=== PATIENT | female | born 1990 | race Caucasian/White ===

== ENCOUNTER 2022-05-11 10:48 | Emergency (ER) | payer OTHER, SELFPAY ==
[2022-05-11 10:49] VITALS: BP 128/85; PULSE 78; RESP 16; TEMP 36.4; O2SAT 100; BMI 31.6
--- NOTE | 2022-05-11 11:04 | EDS_ITS ---
HPI HPI - Female History of Present Illness Chief Complaint: Vag Bleeding Narrative Narrative: 32-year-old female here with heavy vaginal bleeding and dizziness. The patient states this has been intermittent for the last several weeks. States heavy bleeding she is gone through approximately 10 pads in the last 48 hours. Notes history of 2 miscarriages. She is a G4, P6. She notes some dizziness and lightheadedness upon exertion. Denies any chest pain or yessi shortness of breath at this time. PFSH PFSH Medical History no medical history Home Medications NK 05/11/22 [History Last Taken Unknown] Allergy/AdvReac Type Severity Reaction Status Date / Time No Known Allergies Allergy Verified 05/11/22 11:46 Surgical History no surgical history Social History Smoking Status: Never smoker ROS ROS ED ROS Narrative Constitutional: Denies fever HEENT: Denies sore throat Neck: Denies neck pain Cardiovascular: Denies chest pain, syncope Respiratory: Denies shortness of breath GI: Denies nausea vomiting or abdominal pain : Denies changes in urinary habits, endorses vaginal bleeding Musculoskeletal: Denies muscle or joint pain Neurologic: Denies numbness weakness or loss of sensation, endorses dizziness Skin denies rash EXAM Physical Exam Narrative Exam Narrative: Nursing triage notes reviewed, Vital signs reviewed Constitutional: please see mdm HENT: MMM Eyes: Pupils equal round and reactive to light, Extraocular muscles intact Neck: No stridor, no JVD, full neck ROM Lungs: Clear to auscultation, No wheezing or rales. No increased work of breathing, no conversational dyspnea, no accessory muscle use, no nasal flaring. No respiratory distress noted Heart: Regular rate and rhythm, No murmurs, No rubs and No gallops, 2+ distal pulses (radial, femoral, posterior tibial) in all extremities Abdomen: Soft, there is no tenderness, rigidity, rebound or guarding, no obvious peritoneal signs, no palpable pulsatile abdominal masses, no auscultated abdo eloise bruit : No CVAT, pelvic exam deferred by patient Extremities: No edema Neuro: Alert and oriented x3, neuro exam at baseline, cranial nerves II through XII are intact. No pain with extraocular muscle movement. There is negative test of skew. Normal speech. 5 of 5 strength in upper and lower extremities in flexion extension. Intact sensation to light touch in upper and lower extremity dermatomes. No truncal or extremity ataxia. No dysdiadochokinesia. Normal gait. 2+ reflexes. No meningeal signs. Negative Babinski. NIH of 0 Skin: No rash or lesions noted Const Vital Signs: 05/11/22 10:49 Temperature 97.6 F L Temperature Source Temporal Pulse Rate 78 Respiratory Rate 16 Blood Pressure 128/85 H Blood Pressure Mean 99 Pulse Ox 100 Oxygen Delivery Method Room Air MDM MDM MDM Narrative Medical decision making narrative: Chief Complaint: Vaginal bleeding External records reviewed: No recent ED visits or hospitalizations I considered: Abnormal uterine bleeding, , miscarriage, ectopic , anemia The patient was hemodynamically stable, afebrile, nontoxic-appearing. He had no focal neurologic deficits on exam. Obtained labs which showed no significant anemia, troponin EKG showed no evidence of myocardial ischemia. There is no significant acute kidney injury. Patient is Rh+. Labs are otherwise unremarkable. Patient was not ruling out ectopic or miscarriage. Patient is likely some from dysfunctional uterine bleeding or heavy uterine bleeding. Recommended close EXECUTIVE MARKETING ASSISTANT follow-up. Discussed tricked return precautions. Factors affecting care: None Social determinants of health: None History obtained from others: Shared decision making: I will have a discussion with the patient and or visitors regarding risk/benefits of further testing or admission. They will be made aware of of the risk/benefits inherent in this decision they will be given the opportunity to voice understanding. Consults: none Lab Data Attestation: I reviewed the patient's lab results. Lab results narrative: CBC without leukocytosis, severe anemia, no thrombocytopenia. BMP without evidence of significant electrolyte abnormalities, no anion gap, no acute kidney injury. Serum hCG negative Troponin negative Labs: Laboratory Results - last 24 hr 05/11/22 05/11/22 05/11/22 11:00 11:00 11:00 WBC 7.7 RBC 4.95 Hgb 15.0 Hct 42.6 MCV 86.1 MCH 30.3 MCHC 35.2 RDW Std Deviation 36.5 RDW Coeff of Chanda 11.6 Plt Count 341 MPV 10.0 Immature Gran % (Auto) 0.100 Neut % (Auto) 54.1 Lymph % (Auto) 34.1 Callahan % (Auto) 9.5 Eos % (Auto) 1.8 Baso % (Auto) 0.4 Absolute Neuts (auto) 4.2 Absolute Lymphs (auto) 2.62 Nucleated RBC % 0 Sodium 141 Potassium 3.6 Chloride 108 H Carbon Dioxide 28.0 Anion Gap 5 BUN 8 Creatinine 0.50 L Estim Creat Clear Calc 146.70 Est GFR (MDRD) Af Amer 183 Est GFR (MDRD) Non-Af 151 BUN/Creatinine Ratio 15.9 Glucose 108 H Calcium 9.3 Troponin I High Sens < 3 L HCG, Quant < 1 Blood Type Antibody Screen 05/11/22 11:00 WBC RBC Hgb Hct MCV MCH MCHC RDW Std Deviation RDW Coeff of Chanda Plt Count MPV Immature Gran % (Auto) Neut % (Auto) Lymph % (Auto) Callahan % (Auto) Eos % (Auto) Baso % (Auto) Absolute Neuts (auto) Absolute Lymphs (auto) Nucleated RBC % Sodium Potassium Chloride Carbon Dioxide Anion Gap BUN Creatinine Estim Creat Clear Calc Est GFR (MDRD) Af Amer Est GFR (MDRD) Non-Af BUN/Creatinine Ratio Glucose Calcium Troponin I High Sens HCG, Quant Blood Type A POSITIVE Antibody Screen NEGATIVE Radiography Diagnostic Testing: Clinical Impression(s) from Imaging Studies Chest X-Ray 05/11/22 11:40 IMPRESSION: Normal x-ray examination of the chest. Electronically Signed: Aric Thomas MD at 11:55 EST , I have personally reviewed the patient's chest x-ray. Chest x-ray is unremarkable for pulmonary edema, pneumothorax, pneumonia or focal cardiopulmonary abnormality. EKG Initial EKG: Comments: EKG with normal sinus rhythm, normal axis, no intervals, no obvious Discharge Plan Triage Chief Complaint: Vag Bleeding ED Provider: Hector Navarro Dx/Rx/DC Orders Clinical Impression: Abnormal vaginal bleeding Instructions: ED Dysfunctional Uterine Bleeding Prescriptions: No Action NK Primary Care Provider: Care Physician,No Primary Referrals: Darby Hernandez MD [Med Staff - Courtesy Staff] - NOT,DEFINED [Non-Staff] - Activity Restrictions/Additional Instructions: Please return if bleeding continues to be heavy, if you lose consciousness, develop worsening chest pain, shortness of breath, fatigue or weakness. Please follow with your EXECUTIVE MARKETING ASSISTANT the next billable appointment. Have given your EXECUTIVE MARKETING ASSISTANT as well he did not have one presently. Disposition Disposition: Home, Self Care Discharge Date/Time: 05/11/22 13:03
--- NOTE | 2022-05-11 11:25 | EKG12_ITS ---
Test Reason : DIZZY Blood Pressure : / mmHG Vent. Rate : 068 BPM Atrial Rate : 068 BPM P-R Int : 146 ms QRS Dur : 076 ms QT Int : 372 ms P-R-T Axes : 015 039 006 degrees QTc Int : 395 ms Normal sinus rhythm Normal ECG Confirmed by MARIANO JETER MD ([id number]), editor & co founder ARIANNA JONES ([id number]) on 05/13/2022 2:10:32 PM Referred By: Confirmed By:MARIANO JETER MD
[2022-05-11 11:39] LABS: Absolute Lymphocyte Count 2.62 X10^3/uL (0.83-4.51); Absolute Neutrophil Count 4.2 X10^3/uL (2.0-7.7); Basophil# 0.03 X10^3/uL; Basophil% 0.4 % (0-1); Eosinophil# 0.14 X10^3/uL; Eosinophils% 1.8 % (0-5); Hematocrit 42.6 % (37-47); Lymphocyte # 2.62 X10^3/ul (0.83-4.51); Lymphocyte % 34.1 % (19-41); Mean Corp Hgb Conc 35.2 g/dL (32-36); Mean Corpuscular Hgb 30.3 pg (27.0-32.0); Mean Corpuscular Volume 86.1 fL (81-99); Monocyte# 0.73 X10^3/uL; Monocyte% 9.5 % (0-10); NRBC Flagged by Analyzer 0 % (0-5); Neutrophil # 4.16 X10^3/uL (2.7-7.7); Neutrophil % 54.1 % (47-70); Platelet Count 341 K/mm3 (150-450); RBC Distribution Width CV 11.6 % (11.6-14.6); RBC Distribution Width SD 36.5 fl (35.1-43.9); Red Blood Count 4.95 M/mm3 (4.2-5.4); White Blood Count 7.7 K/mm3 (4.4-11.0)
--- NOTE | 2022-05-11 11:40 | RAD_ITS ---
STUDY: X-RAY CHEST REASON FOR EXAM: Female, 32 years old. Chest pain TECHNIQUE: PA and lateral views of the chest. COMPARISON: None. FINDINGS: The lungs are clear and expanded. There is no demonstrated pleural abnormality. Normal size heart. Normal mediastinum and xuan. Normal visualized pulmonary arteries. Normal visualized aortic arch and descending thoracic aorta. Normal visualized thoracic spine. Normal visualized ribs, clavicles, and shoulders. There is no demonstrated abnormality of the visualized soft tissue structures of the upper abdomen. RAD/Chest PA and Lateral IMPRESSION: Normal x-ray examination of the chest. Electronically Signed: Aric Thomas MD at 11:55 EST ,
[2022-05-11 11:57] LABS: Anion Gap 5 (5-15); BUN 8 mg/dL (7-18); BUN/Creat Ratio 15.9 RATIO (10-20); Calcium,Total 9.3 mg/dL (8.5-10.1); Chloride 108 mmol/L (98-107); EST Glomerular Filtration Rate 151 mL/min (>60); Est Glom Filt Rate - Afr Amer 183 mL/min (>60); Glucose 108 mg/dL (74-106); Potassium 3.6 mmol/L (3.5-5.1); Sodium Level 141 mmol/L (136-145); Troponin-I HS < 3 pg/mL (3.0-54.0); hCG Titer Quant., Serum < 1 mIU/mL (1-3)
== END 2022-05-11 13:03 | disposition home or self-care (01) ==
PROVIDERS: Emergency Provider Emergency Medicine; Visit Provider Emergency Medicine
DX: N93.9 Abnormal uterine and vaginal bleeding, unspecified (principal)
CPT/HCPCS: 71046; 80048; 84484; 84702; 85025; 86850; 86900; 86901; 93005; 99284; A4216